=== PATIENT | female | born 1995 | race Caucasian/White ===

== ENCOUNTER 2019-11-20 16:16 | Emergency (ER) | payer SELFPAY ==
[~2019-11-20] VITALS: Ht 165.1 cm; Wt 81.6 kg
[2019-11-20 17:58] LABS: *BILIRUBIN,URIN NEGATIVE (NEGATIVE); *BLOOD, URINE NEGATIVE (NEGATIVE); *CLARITY,URINE SLIGHTLY CLOUDY (CLEAR); *COLOR,URINE YELLOW (YELLOW); *KETONES,URINE NEGATIVE (NEGATIVE); *UROBILINOGEN,URINE 0.2 E.U./dl (NORMAL); LEUKOCYTE ESTERASE ,URINE NEGATIVE (NEGATIVE); NITRITE, URINE NEGATIVE (NEGATIVE); PH,URINE 6.5 (5.0-8.0); UGLUCOSE NEGATIVE (NEGATIVE)
--- NOTE | 2019-11-20 17:58 | NUR ---
PT IS IN ROOM #2B. DR TANG EVALUATED THE PT.
[2019-11-20 17:59] LABS: *URINE HCG, QUAL NEGATIVE (NEGATIVE)
[2019-11-20 18:06] LABS: BACTERIA,URINE FEW /HPF (NONE SEEN); MUCUS,URINE FEW /LPF (0-FEW); SQUAMOUS EPITHELIAL CELL,UR MANY /HPF (NONE SEEN); WBC,URINE 0-3 /HPF (0-3)
--- NOTE | 2019-11-20 18:58 | NUR ---
REPORT GIVEN TO RADIO TELEVISION ANNOUNCER RN.
[2019-11-20] MEDS ORDERED: KETOROLAC TROMETHAMINE 30 MG INJ IVP ONE (20:00)
[2019-11-20] MEDS ORDERED: IV NS 1000 ML 1,000 ML IV ONE ×2 (20:00→22:15)
[2019-11-20] MEDS ORDERED: KETOROLAC TROMETHAMINE 30 MG INJ ONE (20:09)
--- NOTE | 2019-11-20 20:12 | NUR ---
Rectal temp was ordered by Dr. White; patient refused.
[2019-11-20 20:18] LABS: BASOPHILS # (AUTO) 0.1 K/uL (0.0-8.0); BASOPHILS % (AUTO) 0.9 % (0.0-2.0); EOSINOPHILS # (AUTO) 0.2 K/uL (0.0-0.7); HEMATOCRIT 47.2 % (31.2-41.9); HEMOGLOBIN 16.1 g/dL (10.9-14.3); LYMPHOCYTES # (AUTO) 2.4 K/uL (20.0-40.0); LYMPHOCYTES % (AUTO) 19.9 % (20.5-51.5); MEAN CORPUSCULAR HEMOGLOBIN 30.6 uug (24.7-32.8); MEAN CORPUSCULAR HGB CONC 34 g/dL (32.3-35.6); MEAN CORPUSCULAR VOLUME 89.6 fL (75.5-95.3); MONOCYTES # (AUTO) 0.6 K/uL (2.0-10.0); MONOCYTES % (AUTO) 4.5 % (0.0-11.0); NEUTROPHILS # (AUTO) 8.9 K/uL (1.8-8.9); NEUTROPHILS % (AUTO) 72.7 % (38.5-71.5); PLATELET COUNT (AUTO) 409 K/uL (179-408); RED BLOOD CELL COUNT(AUTO) 5.27 MIL/uL (3.63-4.92); WHITE BLOOD COUNT (AUTO) 12.2 K/uL (3.8-11.8)
[2019-11-20 20:25] LABS: CARBON DIOXIDE 29 mmol/L (21-32); CHLORIDE 100 mmol/L (98-107); CREATININE 0.8 mg/dL (0.6-1.3); GLUCOSE 90 mg/dL (74-106); POTASSIUM 3.5 mmol/L (3.5-5.1); UREA NITROGEN, BLOOD 6 mg/dL (7-18)
[2019-11-20 20:31] LABS: ALANINE AMINOTRANSFERASE 36 U/L (14-59); ALKALINE PHOSPHATASE 108 U/L (50-136); ASPARTATE AMINOTRANSFERASE 17 U/L (15-37); BILIRUBIN,DIRECT 0.2 mg/dL (0.0-0.2); BILIRUBIN,TOTAL 1.2 mg/dL (0.2-1.0); TOTAL PROTEIN, SERUM 9.1 g/dL (6.4-8.2)
--- NOTE | 2019-11-20 23:00 | NUR ---
Patient taken to CT scan in stable condition
[2019-11-20] MEDS ORDERED: SWABABLE VALVE TRANSFER SET EA MC ONE (23:05)
[2019-11-20] MEDS ORDERED: IOHEXOL 300MG/ML 100 ML INFUS..BTL ONE (23:05)
[2019-11-20] MEDS ORDERED: IV NORMAL SALINE 250 ML IV ONE (23:05)
--- NOTE | 2019-11-20 23:20 | NUR ---
Patient back from CT scan in stable condition
--- NOTE | 2019-11-21 00:54 | NUR ---
Patient does not wish to proceed with medical care recommended by Dr. White. Patient given information related to possible complications, up to and including , which could occur as a result of leaving the hospital at this time. Patient verbalizes understanding of risks involved due to leaving against medical advice. Patient has signed AMA form. IV removed. Catheter intact and site benign. Pressure and 4x4 gauze applied to site. No bleeding noted. Patient ambulating with stready gait
[2019-11-21 00:56] VITALS: BP 124/76
== END 2019-11-21 00:54 | disposition left against medical advice (07) ==
LOC: ER 16:18
DX: M54.5 Low back pain (principal); R00.0 Tachycardia, unspecified
CPT/HCPCS: 36415; 72131; 80048; 80076; 81000; 81001; 84702; 84703; 85025; 85651; 93005; 96374; 99284; J1885; Q9967; A4663; J7030; J7050